=== PATIENT | male | born 1985 | race Caucasian/White ===

== ENCOUNTER 2016-12-21 13:03 | Inpatient (IN) ==
[2016-12-21] MEDS ORDERED: 0.9 % Sodium Chloride 1,000 ML IVC ONE (13:23)
--- NOTE | 2016-12-21 13:23 | Emergency Department Note ---
Disposition Clinical Impression: Acute renal failure, Kidney stones, calcium oxalate Abdominal pain Qualifiers: Abdominal location: generalized Qualified Code(s): R10.84 - Generalized abdominal pain Disposition: Admitted As Inpatient Condition: Serious Referrals: NO,PCP [Primary Care Provider] - Forms: ED Satisfaction Letter General Adult HPI - General Chief complaint: ED Back Pain/Injury Stated complaint: Vomiting, lower back pain, dark urine, for 3 days Time Seen by Provider: 12/21/16 13:21 Source: patient, family Limitations: no limitations - History of Present Illness HPI Narrative: 31 year old with recurrent nausea, vomiting and abdominal pain episodes in [place] of monthly for years, hospitalized for low K, renal failure multiple kidney failures multiple procedures of stones past GI workup normal and question diagnosis of cyclic vomiting refuses to come to hospital, even though he was instructed to not damage kidneys by staying at home still waits few days, due to stubborn not wanting to be sent home. Onset (ago): day(s) Location: abdomen Pain Severity: severe, similar to prior episodes Pain Scale: 8 Quality: stabbing, sharp Consistency: intermittent Improves with: eating Associated symptoms: Reports: diaphoresis, loss of appetite, malaise, nausea/ vomiting, shortness of breath, weakness Treatments Prior to Arrival: none - Related Data Home Medications Medication Instructions Recorded Confirmed No Known Home Drugs 12/21/16 12/21/16 Allergies Allergy/AdvReac Type Severity Reaction Status Date / Time No Known Allergies Allergy Verified 08/19/15 16:35 All systems ED: reviewed and negative except as stated. Constitutional: Reports: weakness Gastrointestinal: Reports: as per HPI Neurological: Reports: weakness Past Medical History - Past Medical History Medical history: Reports: kidney stones, other Surgical history: Reports: other Psychiatric history: Reports: no psych history - Social History Smoking Status: Current every day smoker Smokeless Tobacco Status: No Alcohol use: Reports: none Drug use: Reports: marijuana Physical Exam - General Limitations: no limitations General appearance: alert - Head Head exam: atraumatic - Eye Eye exam: Present: normal appearance - ENT ENT exam: normal exam - Neck Neck exam: Present: normal inspection - Chest Chest inspection: Present: normal inspection - Respiratory Respiratory exam: Present: normal lung sounds bilaterally - Cardiovascular Cardiovascular exam: Present: normal rhythm, tachycardia - Abdominal Exam Abdominal exam: Present: soft, tenderness. Absent: guarding, rebound Abdominal tenderness: Present: diffuse Course Course Narrative: patient seen and examined recurrent problem fluids and pain/antiemetics Vital Signs Temperature 98.9 F 12/21/16 13:06 Pulse Rate 125 12/21/16 13:06 Respiratory Rate 16 12/21/16 13:06 Blood Pressure 130/91 12/21/16 13:06 O2 Sat by Pulse Oximetry 95 12/21/16 13:06 Temperature 98.9 F 12/21/16 13:09 Pulse Rate 125 12/21/16 13:09 Respiratory Rate 16 12/21/16 13:09 Blood Pressure 130/91 12/21/16 13:09 O2 Sat by Pulse Oximetry 95 12/21/16 13:09 Oxygen Delivery Oxygen Delivery Room Air Medical Decision Making - MDM Narrative Medical decision making narrative: ARF kidney stones nausea and vomiting recurrent problems - Medical Records Medical records reviewed: Yes I reviewed the patient's medical records. - Lab Data Lab results reviewed: Yes I reviewed the patient's lab results. Result diagrams: 12/21/16 13:39 12/21/16 13:39 Lab Results 12/21/16 12/21/16 12/21/16 Range/Units 13:28 13:28 13:39 WBC 16.3 H (4.3-11.1) K/mcL RBC 6.87 H (4.19-5.50) M/mcL Hgb 19.7 H (12.9-16.9) g/dL Hct 56.7 H (37.5-50.1) % MCV 82.5 L (83.0-100.0) fL MCH 28.7 (28.0-33.3) pg MCHC 34.7 (31.6-35.5) g/dL RDW 13.1 (11.5-14.5) % Plt Count 341 (140-400) K/mcL MPV 10.7 (9.4-12.4) fL Immature Gran % 0.4 (0-4) % Seg Neutrophils % 86.2 % Lymphocytes % 8.5 % Monocytes % 4.2 % Eosinophils % 0.1 % Basophils % 0.6 % Neutrophils # 14.1 H (1.6-8.9) K/mcL Lymphocytes # 1.4 (0.6-4.6) K/mcL Monocytes # 0.7 (0.0-1.3) K/mcL Eosinophils # 0.0 (0.0-0.6) K/mcL Basophils # 0.1 (0.0-0.2) K/mcL Sodium (136-145) mEq/L Potassium (3.5-4.5) mEq/L Chloride (98-109) mEq/L Carbon Dioxide (19-29) mEq/L BUN (8-26) mg/dL Creatinine (0.72-1.25) mg/dL Est GFR ( Amer) (> 60) Est GFR (Non-Af Amer) (> 60) BUN/Creatinine Ratio (6-26) Glucose (70-99) mg/dL Calculated Osmolality (280-300) Calcium (8.6-10.8) mg/dL Total Bilirubin (0.2-1.2) mg/dL Direct Bilirubin (0.0-0.5) mg/dL Indirect Bilirubin (0.0-1.2) mg/dL AST (5-34) Units/L ALT (0-55) Units/L Alkaline Phosphatase (38-126) Units/L Serum Total Protein (6.0-8.3) g/dL Albumin (3.5-5.0) g/dL Globulin (2.4-3.5) g/dL Albumin/Globulin Ratio (1.1-2.2) Amylase (25-125) Units/L Lipase (8-78) Units/L Urine Color Dark Yellow (Yellow) Urine Clarity Slightly Cloudy A (Clear) Urine pH 5.0 (5.0-8.0) pH Units Ur Specific [place] >= 1.030 H (1.010-1.025) Urine Protein >=300 H (Neg-Trace) mg/dL Urine Glucose (UA) Normal (Normal) mg/dL Urine Ketones 15 H (Negative) mg/dL Urine Blood Large H (Negative) Urine Nitrite Negative (Negative) Urine Bilirubin Large H (Negative) Urine Urobilinogen Normal (Normal) mg/dL Ur Leukocyte Esterase Negative (Negative) Urine Microscopic RBC TNTC H (0-3) per hpf Urine Microscopic WBC 3-5 H (0-3) per hpf Ur Squamous Epith Cells Few (None-Few) per lpf Ur Renal Epithelial Cell Many H (None-Few) per hpf Urine Bacteria Few (None-Few) per hpf Granular Casts Many H (None Seen) per lpf Urine Mucus Few (Few) Ur Culture Indicated? NO (NO) Urine Opiates Screen Negative (Zksidq=796) ng/mL Ur Oxycodone Screen Positive H (Cutoff= 100) ng/mL Ur Barbiturates Screen Negative (Nkfrqy=121) ng/mL Ur Phencyclidine Scrn Negative (Cutoff=25) ng/mL Ur Amphetamines Screen Negative (Crwkbi=2315) ng/mL U Benzodiazepines Scrn Negative (Igtftq=668) ng/mL Urine Cocaine Screen Negative (Cutoff= 300) ng/mL U Marijuana (THC) Screen Positive H (Cutoff = 50) ng/mL 12/21/16 Range/Units 13:39 WBC (4.3-11.1) K/mcL RBC (4.19-5.50) M/mcL Hgb (12.9-16.9) g/dL Hct (37.5-50.1) % MCV (83.0-100.0) fL MCH (28.0-33.3) pg MCHC (31.6-35.5) g/dL RDW (11.5-14.5) % Plt Count (140-400) K/mcL MPV (9.4-12.4) fL Immature Gran % (0-4) % Seg Neutrophils % % Lymphocytes % % Monocytes % % Eosinophils % % Basophils % % Neutrophils # (1.6-8.9) K/mcL Lymphocytes # (0.6-4.6) K/mcL Monocytes # (0.0-1.3) K/mcL Eosinophils # (0.0-0.6) K/mcL Basophils # (0.0-0.2) K/mcL Sodium 146 H (136-145) mEq/L Potassium 4.0 (3.5-4.5) mEq/L Chloride 100 (98-109) mEq/L Carbon Dioxide 27 (19-29) mEq/L BUN 32 H (8-26) mg/dL Creatinine 2.92 H (0.72-1.25) mg/dL Est GFR ( Amer) 30 L (> 60) Est GFR (Non-Af Amer) 25 L (> 60) BUN/Creatinine Ratio 11 (6-26) Glucose 184 H (70-99) mg/dL Calculated Osmolality 314 H (280-300) Calcium 12.4 H (8.6-10.8) mg/dL Total Bilirubin 1.1 (0.2-1.2) mg/dL Direct Bilirubin 0.4 (0.0-0.5) mg/dL Indirect Bilirubin 0.7 (0.0-1.2) mg/dL AST 17 (5-34) Units/L ALT 24 (0-55) Units/L Alkaline Phosphatase 92 (38-126) Units/L Serum Total Protein 9.8 H (6.0-8.3) g/dL Albumin 5.1 H (3.5-5.0) g/dL Globulin 4.7 H (2.4-3.5) g/dL Albumin/Globulin Ratio 1.1 (1.1-2.2) Amylase 61 (25-125) Units/L Lipase 20 (8-78) Units/L Urine Color (Yellow) Urine Clarity (Clear) Urine pH (5.0-8.0) pH Units Ur Specific [place] (1.010-1.025) Urine Protein (Neg-Trace) mg/dL Urine Glucose (UA) (Normal) mg/dL Urine Ketones (Negative) mg/dL Urine Blood (Negative) Urine Nitrite (Negative) Urine Bilirubin (Negative) Urine Urobilinogen (Normal) mg/dL Ur Leukocyte Esterase (Negative) Urine Microscopic RBC (0-3) per hpf Urine Microscopic WBC (0-3) per hpf Ur Squamous Epith Cells (None-Few) per lpf Ur Renal Epithelial Cell (None-Few) per hpf Urine Bacteria (None-Few) per hpf Granular Casts (None Seen) per lpf Urine Mucus (Few) Ur Culture Indicated? (NO) Urine Opiates Screen (Yrwelj=064) ng/mL Ur Oxycodone Screen (Cutoff= 100) ng/mL Ur Barbiturates Screen (Ckwfsc=126) ng/mL Ur Phencyclidine Scrn (Cutoff=25) ng/mL Ur Amphetamines Screen (Naxqwd=7306) ng/mL U Benzodiazepines Scrn (Phkemv=124) ng/mL Urine Cocaine Screen (Cutoff= 300) ng/mL U Marijuana (THC) Screen (Cutoff = 50) ng/mL - Radiology Data Radiology results reviewed: Yes I reviewed the patient's radiology results. Impressions Abdomen/Pelvis CT 12/21/16 13:24 IMPRESSION: Bilateral nephrolithiasis. No evidence of urinary tract obstruction. Nonspecific rectosigmoid colon wall thickening similar to the prior exam. No evidence of inflammation. D/ / Tevin Valiente MD / Tevin Valiente MD Interpreting Provider: Tevin Valiente MD
[2016-12-21 13:31] LABS: Bilirubin,Urine Large (Negative); Blood,Urine Large (Negative); Clarity,Urine Slightly Cloudy (Clear); Glucose,Urine (UA) Normal (Normal); Ketones,Urine 15 mg/dL (Negative); Leukocyte Esterase,Urine Negative (Negative); Nitrite,Urine Negative (Negative); Protein,Urine >=300 mg/dL (Neg-Trace); Specific Gravity,Urine >= 1.030 (1.010-1.025); Urobilinogen,Urine Normal (Normal)
[2016-12-21] MEDS ORDERED: *HR* HYDROmorphone (PF) 1 MG/ML SYRINGE IVP ONE ×2 (13:46→14:54)
[2016-12-21 13:48] LABS: Amphetamine Screen,Urine Negative ng/mL (Cutoff=1000); Barbiturate Screen,Urine Negative ng/mL (Cutoff=200); Benzodiazepines Screen,Urine Negative ng/mL (Cutoff=200); Cannabinoid Screen,Urine Positive ng/mL (Cutoff = 50); Cocaine Screen,Urine Negative ng/mL (Cutoff= 300); Opiate Screen,Urine Negative ng/mL (Cutoff=300); Phencyclidine Screen,Urine Negative ng/mL (Cutoff=25)
[2016-12-21 13:49] LABS: Color,Urine Dark Yellow (Yellow)
[2016-12-21 13:50] LABS: Basophils # 0.1 K/mcL (0.0-0.2); Basophils % 0.6 %; Eosinophils % 0.1 %; Hemoglobin 19.7 g/dL (12.9-16.9); Immature Granulocytes % 0.4 % (0-4); Lymphocytes # 1.4 K/mcL (0.6-4.6); Lymphocytes % 8.5 %; Mean Corpuscular HGB Conc 34.7 g/dL (31.6-35.5); Mean Corpuscular Hemoglobin 28.7 pg (28.0-33.3); Mean Corpuscular Volume 82.5 fL (83.0-100.0); Mean Platelet Volume 10.7 fL (9.4-12.4); Monocytes # 0.7 K/mcL (0.0-1.3); Monocytes % 4.2 %; Platelet Count 341 K/mcL (140-400); Red Blood Count 6.87 M/mcL (4.19-5.50); Red Cell Distribution Width 13.1 % (11.5-14.5); Segmented Neutrophils % 86.2 %
[2016-12-21 13:52] LABS: Granular Casts,Urine Many per lpf (None Seen); Mucus,Urine Few (Few); RBC,Urine TNTC per hpf (0-3); Renal Epithelial Cells,Urine Many per hpf (None-Few); Squamous Epithelial Cell,Urine Few per lpf (None-Few)
[2016-12-21 13:53] LABS: Bacteria,Urine Few per hpf (None-Few)
[2016-12-21] MEDS ORDERED: Ondansetron 4 MG/2 ML VIAL IVP ONE (13:59)
[2016-12-21 14:10] LABS: Albumin 5.1 g/dL (3.5-5.0); Albumin/Globulin Ratio 1.1 (1.1-2.2); Bilirubin,Direct 0.4 mg/dL (0.0-0.5); Bilirubin,Indirect 0.7 mg/dL (0.0-1.2); Bilirubin,Total 1.1 mg/dL (0.2-1.2); Calcium 12.4 mg/dL (8.6-10.8); Globulin 4.7 g/dL (2.4-3.5); Hematocrit 56.7 % (37.5-50.1); Neutrophils # 14.1 K/mcL (1.6-8.9); Total Protein 9.8 g/dL (6.0-8.3)
[2016-12-21] MEDS ORDERED: GI Cocktail 40 ML EACH PO ONE (14:54)
[2016-12-21] MEDS ORDERED: 0.9 % Sodium Chloride 1,000 ML IVC SCH (15:00)
[2016-12-21] MEDS ORDERED: Ondansetron ODT 4 MG TAB.RAPDIS SL PRN (15:47)
[2016-12-21] MEDS ORDERED: Ondansetron 4 MG/2 ML VIAL IVP PRN (15:47)
[2016-12-21] MEDS ORDERED: Naloxone 0.4 MG/ML INJ IVP PRN (15:47)
[2016-12-21] MEDS ORDERED: *HR* HYDROmorphone (PF) 1 MG/ML SYRINGE IVP PRN (15:47)
[2016-12-21] MEDS ORDERED: *HR* OxyCODONE Immed Rel 5 MG TABLET PO PRN (15:47)
[2016-12-21] MEDS: 0.9 % Sodium Chloride 1,000 ML IVC SCH (16:33)
[2016-12-21] MEDS: *HR* Promethazine 25 MG/ML VIAL IVP PRN (16:51)
[2016-12-21] MEDS: *HR* HYDROmorphone (PF) 1 MG/ML SYRINGE IVP PRN ×3 (18:02→22:47)
[2016-12-22] MEDS: *HR* HYDROmorphone (PF) 1 MG/ML SYRINGE IVP PRN ×7 (00:46→17:42)
[2016-12-22] MEDS: *HR* Promethazine 25 MG/ML VIAL IVP PRN ×2 (00:47→06:42)
[2016-12-22] MEDS: 0.9 % Sodium Chloride 1,000 ML IVC SCH ×2 (00:47→09:04)
[2016-12-22 05:41] LABS: Basophils # 0.1 K/mcL (0.0-0.2); Basophils % 0.4 %; Eosinophils % 0.1 %; Hematocrit 54.5 % (37.5-50.1); Immature Granulocytes % 0.5 % (0-4); Lymphocytes # 2.6 K/mcL (0.6-4.6); Lymphocytes % 14.6 %; Mean Corpuscular Hemoglobin 28.4 pg (28.0-33.3); Mean Corpuscular Volume 86.1 fL (83.0-100.0); Mean Platelet Volume 11.3 fL (9.4-12.4); Monocytes # 2.2 K/mcL (0.0-1.3); Monocytes % 12.4 %; Platelet Count 250 K/mcL (140-400); Red Blood Count 6.33 M/mcL (4.19-5.50); Red Cell Distribution Width 12.9 % (11.5-14.5)
[2016-12-22 06:01] LABS: Calcium 10.5 mg/dL (8.6-10.8); Potassium 3.7 mEq/L (3.5-4.5)
[2016-12-22] MEDS ORDERED: Pantoprazole 40 MG VIAL IVP SCH (09:00)
[2016-12-22] MEDS ORDERED: Ondansetron 4 MG/2 ML VIAL IVP PRN (11:50)
[2016-12-22] MEDS ORDERED: Ondansetron ODT 4 MG TAB.RAPDIS SL PRN (11:51)
[2016-12-22] MEDS ORDERED: *HR* Promethazine 25 MG/ML VIAL IVP PRN (11:51)
--- NOTE | 2016-12-22 11:56 | Internal Med History&Physical ---
Date of Encounter: 12/22/16 Time of Encounter: 11:25 Assessment and Plan (1) Acute renal failure Current visit: Yes Status: Acute He has been started on IV fluids and renal indices will be monitored. Qualifiers: Acute renal failure type: unspecified Qualified Code(s): N17.9 - Acute kidney failure, unspecified (2) Hyperuricemia Current visit: Yes Status: Acute Uric acid level was 9.0 on 05/13/2015. We will give IV fluids and recheck in a.m. (3) Leucocytosis Current visit: No Status: Acute Urine culture has been ordered. We will give Rocephin empirically Qualifiers: Leukocytosis type: unspecified Qualified Code(s): D72.829 - Elevated white blood cell count, unspecified (4) Hypercalcemia Current visit: No Status: Resolved Improved today at 10.5 from admission level of 12.4. Continue to monitor. (5) Hypophosphatemia Current visit: Yes Status: Acute Phosphorus level was 1.9 on 05/14/2015. We will recheck in a.m. Internal Medicine - H&P: HPI Chief complaint: Vomiting Admitted From: Home Plans for Post Hospital Care: Home History of present illness: Mr. Kwan is a 31 year old male who came to emergency complaining of vomiting onset December 18. He reports 37 episodes of vomiting with progressive weakness. He was evaluated in emergency room and found to have dehydration with acute renal failure and leukocytosis. He was admitted to [facility] floor for ongoing care needs. He states he has had numerous previous similar episodes and was diagnosed with cyclical vomiting approximately 2010 in [place]. He states he is typically admitted to the hospital and requires 2-3 days of IV fluids and analgesics. He reports having 2 EGDs and 2 colonoscopies. He had several colon polyps removed during the last colonoscopy in 2012. It was recommended he have a three-year follow-up colonoscopy but he has not had this done. He has GERD but denies disorders of his liver or exocrine pancreas. Past Med Surg Social Fam HX - Past Medical History Medical history: kidney stones, other Psychiatric history: no psych history - Past Surgical History Surgical History: other - Social History Smoking Status: Current every day smoker Smokeless Tobacco Status: No Alcohol use: none Drug use: marijuana - Family History Grandmother Living Status: Age at : 72 Cause of : Cancer Hx Family Cancer: Yes Internal Medicine - H&P: Meds No Known Home Drugs 12/21/16 [History] Allergies No Known Allergies Allergy (Verified 08/19/15 16:35) All Systems PM: A 10-system review of systems was performed and is negative for pertinent findings except as documented above in the HPI. Review of systems: General: He states his weight has been stable the last few months Cardiovascular: He denies DE hypertension heart failure angina DVT or pulmonary embolus Respiratory: He is smoked since age 14 a total of 13 years up to one pack per day. He denies chronic lung disease and does not wear home oxygen GI: As per history of present illness : He has had multiple kidney stones in the past and has had numerous episodes of acute renal failure requiring IV fluids for rehydration. He was told at one time he had prostatitis. Neurologic: He denies large distribution strokes or seizures. Endocrine: He denies diabetes thyroid disease or hyperlipidemia. He has been diagnosed with hypercalcemia in the past but PTH level was normal April 2015 Hematology/oncology: He denies blood disorders cancers or anemia Psychiatric: Denies anxiety depression or other mental health issues Musk skeletal: He denies arthritis gout or other bone joint or muscle disorders. - Constitutional Vitals: Temp Pulse Resp BP Pulse Ox 98.1 F 60 16 142/89 97 12/22/16 06:46 12/22/16 06:46 12/22/16 06:46 12/22/16 06:46 12/22/16 06:46 Exam: Gen.: He is a well-developed nourished male who appears in no severe distress at present time HEENT: Head is atraumatic normocephalic. Eyes: EOMI. There is no scleral icterus. Mouth: Mucosa is moist. Neck: Supple and nontender. There is no thyromegaly or adenopathy noted. Heart: Regular without murmurs gallops or ectopics Lungs: No wheezes or crackles are heard. Abdomen: Soft and nontender. Bowel sounds are present. There is no masses or guarding noted Extremity: There is no cyanosis edema or clubbing noted. Dorsalis pedis and posterior tibial pulses are 1-2 bilaterally. Neurologic: Mental status: He is talkative and a good historian. Cranial nerves : Smile is symmetric. Forehead wrinkles bilaterally. Tongue protrudes midline. EOMI. Motor: There is no pronator drift. Cerebellar: Finger to nose is intact bilaterally. Skin: Warm and dry Internal Med - H&P Results - Labs CBC & Chem 7: 12/22/16 04:55 12/22/16 04:55 Labs: Short CBC 12/22/16 Range/Units 04:55 WBC 18.0 H (4.3-11.1) K/mcL Hgb 18.0 H D (12.9-16.9) g/dL Hct 54.5 H (37.5-50.1) % Plt Count 250 (140-400) K/mcL Neutrophils # 13.0 H (1.6-8.9) K/mcL BMP 12/22/16 04:55 Sodium 149 H Potassium 3.7 Chloride 101 Carbon Dioxide 31 H BUN 39 H Creatinine 1.79 H Glucose 105 H Calcium 10.5 D
[2016-12-22] MEDS ORDERED: *HR* Promethazine 25 MG/ML VIAL IVP SCH (12:00)
[2016-12-22] MEDS ORDERED: *HR* OxyCODONE/APAP 5/325 TABLET PO SCH (12:00)
[2016-12-22] MEDS ORDERED: CefTRIAXone 1,000 MG in D5% in Water (Mini-Bag+) 100 ML IVPB SCH (12:00)
[2016-12-22] MEDS: *HR* OxyCODONE/APAP 5/325 TABLET PO SCH (16:45)
[2016-12-23] MEDS: *HR* OxyCODONE/APAP 5/325 TABLET PO SCH ×2 (00:13→08:34)
[2016-12-23 00:28] VITALS: BP 130/85
[2016-12-23 06:31] LABS: Basophils # 0.1 K/mcL (0.0-0.2); Basophils % 0.7 %; Eosinophils # 0.2 K/mcL (0.0-0.6); Eosinophils % 1.7 %; Hematocrit 45.4 % (37.5-50.1); Hemoglobin 14.9 g/dL (12.9-16.9); Immature Granulocytes % 0.2 % (0-4); Lymphocytes # 3.6 K/mcL (0.6-4.6); Lymphocytes % 29.2 %; Mean Corpuscular HGB Conc 32.8 g/dL (31.6-35.5); Mean Corpuscular Hemoglobin 28.7 pg (28.0-33.3); Mean Corpuscular Volume 87.3 fL (83.0-100.0); Mean Platelet Volume 11.3 fL (9.4-12.4); Monocytes % 8.1 %; Neutrophils # 7.3 K/mcL (1.6-8.9); Platelet Count 207 K/mcL (140-400); Red Cell Distribution Width 12.7 % (11.5-14.5); Segmented Neutrophils % 60.1 %
[2016-12-23 06:44] LABS: Alanine Aminotransferase 17 Units/L (0-55); Albumin 3.5 g/dL (3.5-5.0); Albumin/Globulin Ratio 1.3 (1.1-2.2); Alkaline Phosphatase 62 Units/L (38-126); Aspartate Amino Transferase 16 Units/L (5-34); BUN/Creatinine Ratio 19 (6-26); Bilirubin,Total 0.7 mg/dL (0.2-1.2); Blood Urea Nitrogen 21 mg/dL (8-26); Calcium 8.5 mg/dL (8.6-10.8); Carbon Dioxide 28 mEq/L (19-29); Chloride 102 mEq/L (98-109); Globulin 2.8 g/dL (2.4-3.5); Glucose 112 mg/dL (70-99); Osmolality,Calculated 298 (280-300); Phosphorous 2.4 mg/dL (2.3-4.7); Potassium 3.6 mEq/L (3.5-4.5); Sodium 142 mEq/L (136-145); Total Protein 6.3 g/dL (6.0-8.3); Uric Acid 6.8 mg/dL (3.5-7.2); eGFR For African Americans > 60 (> 60); eGFR For Non-African Americans > 60 (> 60)
--- NOTE | 2016-12-23 08:27 | Discharge Summary ---
Date of Encounter: 12/23/16 Time of Encounter: 08:15 - Discharge Diagnosis (1) Acute renal failure Priority: Primary Status: Resolved Qualifiers: Acute renal failure type: unspecified Qualified Code(s): N17.9 - Acute kidney failure, unspecified (2) Hyperuricemia Priority: Secondary Status: Resolved (3) Leucocytosis Priority: Secondary Status: Acute Qualifiers: Leukocytosis type: unspecified Qualified Code(s): D72.829 - Elevated white blood cell count, unspecified (4) Hypercalcemia Priority: Secondary Status: Resolved (5) Hypophosphatemia Priority: Secondary Status: Resolved - Discharge Medications Home Medications: No Known Home Drugs 12/21/16 [History] Allergies/Adverse Reactions: Allergies No Known Allergies Allergy (Verified 08/19/15 16:35) Date of admission: 12/21/16 15:16 Primary care physician: PCP NO - Patient Status Disposition: Home, Self-Care Condition: Serious Overall status at discharge: patient is progressing back to baseline - Discharge Instructions Follow Up With: NO,PCP [Primary Care Provider] - 1 week - Diet and Activity Activity: resume usual activities as tolerated Diet: advance to your usual diet Hospital course: Mr. Kwan is a 31 year old male who came to emergency complaining of vomiting onset December 18. He reports 37 episodes of vomiting with progressive weakness. He was evaluated in emergency room and found to have dehydration with acute renal failure and leukocytosis. He was admitted to [facility] floor for ongoing care needs. Initial orders were written by the emergency room physician. I saw him on December 22 and performed the history and physical. He was given IV fluids and prn anti-emetics. He had no further vomiting after I saw him. He was able to tolerate adequate amount of food and fluids. His azotemia resolved with BUN and creatinine being 21 and 1.11 respectively on December 23. His calcium level improved to 8.5 with IV fluids. Uric acid level was normal at 6.8 and phosphorus level was normal at 2.4. When I saw him on December 23 he felt stable for discharge home. He will follow- up with a PCP within one week. He will call [facility] to schedule an appointment for further evaluation for his kidney stones. - Time Spent with Patient Total time spent providing and/or coordinating discharge services: - Constitutional Vitals: Temp Pulse Resp BP Pulse Ox 98.3 F 64 20 130/85 95 12/23/16 00:27 12/23/16 00:27 12/23/16 00:27 12/23/16 00:27 12/23/16 00:27
== END 2016-12-23 09:05 | disposition home or self-care (01) | DRG 684 ==
LOC: EMEROOPIK 13:03 → INPPIK 13:03
PROVIDERS: ADMIT Internal Medicine; ATTEND Internal Medicine

== ENCOUNTER 2017-03-26 14:16 | Observation (INO) ==
--- NOTE | 2017-03-26 14:30 | Emergency Department Note ---
Disposition Clinical Impression: Abdominal pain Qualifiers: Abdominal location: epigastric Qualified Code(s): R10.13 - Epigastric pain Intractable vomiting with nausea Qualifiers: Vomiting type: cyclical vomiting Qualified Code(s): G43.A1 - Cyclical vomiting , intractable Disposition: Admitted As Inpatient Condition: Fair Nausea/Vomiting/Diarrhea HPI - General Chief complaint: ED Abdominal Pain Stated complaint: abdominal pain, vomiting,duarrhea x 6 day Time Seen by Provider: 03/26/17 14:30 Source: patient, family Mode of arrival: private vehicle Limitations: no limitations Nursing Notes Reviewed: Yes Vital Signs Reviewed: Yes - History of Present Illness HPI Narrative: Patient relates he has had 6 days of increasing nausea and vomiting. He states he started with just vomiting 1-2 times a day in [place] about 13 times in last 24 hours. States he vomits bile whenever he tries to eat or drink. He has had similar trouble intermittently for 6 years and this happens about every 2-3 months. He relates he usually gets bad enough where he needs to be hospitalized for couple days of IV fluids and then he feels much better again. He has been having some diarrhea with this syndrome without blood or mucus. He describes it as "explosive". He also states his urine is less frequent, dark, malodorous. She denies any fevers or chills. He does have some occasional sweats. Denies chest pain or shortness of breath. Denies any change in medication, Advil exposures, antibiotics or travel. He states he does not have any antiemetics. He states that occasionally marijuana will help that he also questions if this may be associated with the marijuana. He does request that he did not have any imaging because he had about [address] scans. He states these are usually negative for does confirm that he has some nephric stones. Patient also relates that he has had multiple upper GI studies, endoscopy and gastric emptying studies without finding a cause for his recurrent problem. Pt Subjective Complaint: nausea, vomiting, diarrhea, abdominal pain Onset (ago): day(s) (6) Description of emesis: food contents, watery, bilious Description of Diarrhea: water Associated Abdominal Pain: Yes If pain, Location of pain: diffuse Severity: moderate Quality: cramping Consistency: intermittent Improves with: nothing Worsens with: eating, bowel movement, vomiting Associated symptoms: Reports: malaise, nausea/vomiting, weakness. Denies: myalgias, chest pain, cough, diaphoresis, fever/chills, headaches, loss of appetite, rash, dysuria, shortness of breath, syncope - Related Data Home Medications Medication Instructions Recorded Confirmed No Known Home Drugs 12/21/16 12/21/16 Allergies Allergy/AdvReac Type Severity Reaction Status Date / Time No Known Allergies Allergy Verified 08/19/15 16:35 All systems ED: reviewed and negative except as stated. Past Medical History - Past Medical History Attestation: Yes The following information was validated with the patient. Source: patient, nursing notes reviewed Medical history: Reports: kidney stones, other (Cyclic vomiting syndrome) Surgical history: Reports: other Psychiatric history: Reports: no psych history - Social History Smoking Status: Current every day smoker Smokeless Tobacco Status: No Alcohol use: Reports: none Drug use: Reports: marijuana Physical Exam - General Limitations: no limitations General appearance: alert, in no apparent distress - Head Head exam: atraumatic, normocephalic, normal inspection - Eye Eye exam: Present: normal appearance, PERRL, EOMI. Absent: scleral icterus, conjunctival injection - ENT ENT exam: normal exam, normal oropharynx, mucous membranes moist - Neck Neck exam: Present: normal inspection, full ROM, trachea midline - Chest Chest inspection: Present: normal inspection, symmetric chest wall rise - Respiratory Respiratory exam: Present: normal lung sounds bilaterally. Absent: respiratory distress, wheezes, prolonged expiratory phase - Cardiovascular Cardiovascular exam: Present: regular rate, normal rhythm, normal heart sounds. Absent: tachycardia - Abdominal Exam Abdominal exam: Present: soft, normal bowel sounds. Absent: distention, guarding, rebound, rigidity Abdominal tenderness: Present: diffuse, mild - Extremities Exam Extremities exam: Present: normal inspection, full ROM, normal capillary refill. Absent: tenderness, pedal edema - Expanded Lower Extremity Exam Neurovascular/Tendon exam: Present: normal capillary refill. Absent: motor deficit, sensory deficit, tendon deficit Gait: observed and normal - Back Exam Back exam: Present: normal inspection, full ROM. Absent: tenderness, vertebral tenderness - Neurological Exam Neurological exam: Present: alert, oriented X3 - Psychiatric Psychiatric exam: Present: normal affect, normal mood - Skin Skin exam: Present: warm, dry, intact, normal color. Absent: rash, diaphoresis , pallor Course Course Narrative: 1545: Lab results have been discussed with the patient and his family. He continues with a severe pressure feeling in the epigastrium and nausea. He has been written for a dose of haloperidol and Benadryl to see if that will ease it off. He indicates that Dilaudid has worked in the past to "take the edge off". This continued pain again discussed imaging and he would like to go without. He states this is a same as he has had recurrently for 6 years and he just needs IV fluids and some pain medicine for a couple days. 1550: Patient's presentation and workup has been discussed with Dr. Nunez. He is agreeable with continuing aggressive hydration, anti-emetics and Dilaudid at 0.5 mg periodically for pain. Vital Signs Temperature 98 F 03/26/17 14:20 Pulse Rate 73 03/26/17 14:20 Respiratory Rate 18 03/26/17 14:20 Blood Pressure 119/80 03/26/17 14:20 O2 Sat by Pulse Oximetry 95 03/26/17 14:20 Temperature 98 F 03/26/17 14:25 Pulse Rate 77 03/26/17 15:51 Respiratory Rate 14 03/26/17 16:22 Blood Pressure 150/85 03/26/17 16:22 O2 Sat by Pulse Oximetry 98 03/26/17 15:51 Oxygen Delivery Oxygen Delivery Room Air Nausea/Vomiting/Diarrhea - Differential Diagnosis Likely: gastroenteritis, dehydration - Medical Records Medical records reviewed: Yes I reviewed the patient's medical records. - Lab Data Lab results reviewed: Yes I reviewed the patient's lab results. Result diagrams: 03/26/17 14:44 03/26/17 14:44 Lab Results 03/26/17 03/26/17 Range/Units 14:44 14:44 WBC 14.0 H (4.3-11.1) K/mcL RBC 6.15 H (4.19-5.50) M/mcL Hgb 17.7 H (12.9-16.9) g/dL Hct 51.3 H (37.5-50.1) % MCV 83.4 (83.0-100.0) fL MCH 28.8 (28.0-33.3) pg MCHC 34.5 (31.6-35.5) g/dL RDW 13.0 (11.5-14.5) % Plt Count 279 (140-400) K/mcL MPV 10.8 (9.4-12.4) fL Immature Gran % 0.4 (0-4) % Seg Neutrophils % 73.4 % Lymphocytes % 18.2 % Monocytes % 6.9 % Eosinophils % 0.4 % Basophils % 0.7 % Neutrophils # 10.3 H (1.6-8.9) K/mcL Lymphocytes # 2.6 (0.6-4.6) K/mcL Monocytes # 1.0 (0.0-1.3) K/mcL Eosinophils # 0.1 (0.0-0.6) K/mcL Basophils # 0.1 (0.0-0.2) K/mcL Sodium 143 (136-145) mEq/L Potassium 4.1 (3.5-4.5) mEq/L Chloride 106 (98-109) mEq/L Carbon Dioxide 22 (19-29) mEq/L BUN 19 (8-26) mg/dL Creatinine 1.31 H (0.72-1.25) mg/dL Est GFR ( Amer) > 60 (> 60) Est GFR (Non-Af Amer) > 60 (> 60) BUN/Creatinine Ratio 15 (6-26) Glucose 129 H (70-99) mg/dL Calculated Osmolality 300 (280-300) Calcium 11.6 H (8.6-10.8) mg/dL Total Bilirubin 0.9 (0.2-1.2) mg/dL Direct Bilirubin 0.3 (0.0-0.5) mg/dL Indirect Bilirubin 0.6 (0.0-1.2) mg/dL AST 16 (5-34) Units/L ALT 21 (0-55) Units/L Alkaline Phosphatase 72 (38-126) Units/L Serum Total Protein 8.3 (6.0-8.3) g/dL Albumin 4.5 (3.5-5.0) g/dL Globulin 3.8 H (2.4-3.5) g/dL Albumin/Globulin Ratio 1.2 (1.1-2.2)
[2017-03-26] MEDS ORDERED: Ondansetron 4 MG/2 ML VIAL IVP ONE (14:36)
[2017-03-26] MEDS: 0.9 % Sodium Chloride 1,000 ML IVC SCH ×3 (14:48→17:10)
[2017-03-26 14:50] LABS: Basophils # 0.1 K/mcL (0.0-0.2); Basophils % 0.7 %; Eosinophils # 0.1 K/mcL (0.0-0.6); Eosinophils % 0.4 %; Hematocrit 51.3 % (37.5-50.1); Hemoglobin 17.7 g/dL (12.9-16.9); Immature Granulocytes % 0.4 % (0-4); Lymphocytes # 2.6 K/mcL (0.6-4.6); Lymphocytes % 18.2 %; Mean Corpuscular HGB Conc 34.5 g/dL (31.6-35.5); Mean Corpuscular Hemoglobin 28.8 pg (28.0-33.3); Mean Corpuscular Volume 83.4 fL (83.0-100.0); Mean Platelet Volume 10.8 fL (9.4-12.4); Monocytes % 6.9 %; Neutrophils # 10.3 K/mcL (1.6-8.9); Platelet Count 279 K/mcL (140-400); Red Blood Count 6.15 M/mcL (4.19-5.50); Segmented Neutrophils % 73.4 %
[2017-03-26 15:08] LABS: Alanine Aminotransferase 21 Units/L (0-55); Albumin 4.5 g/dL (3.5-5.0); Albumin/Globulin Ratio 1.2 (1.1-2.2); Alkaline Phosphatase 72 Units/L (38-126); Aspartate Amino Transferase 16 Units/L (5-34); BUN/Creatinine Ratio 15 (6-26); Bilirubin,Direct 0.3 mg/dL (0.0-0.5); Bilirubin,Indirect 0.6 mg/dL (0.0-1.2); Bilirubin,Total 0.9 mg/dL (0.2-1.2); Blood Urea Nitrogen 19 mg/dL (8-26); Calcium 11.6 mg/dL (8.6-10.8); Carbon Dioxide 22 mEq/L (19-29); Chloride 106 mEq/L (98-109); Globulin 3.8 g/dL (2.4-3.5); Glucose 129 mg/dL (70-99); Osmolality,Calculated 300 (280-300); Potassium 4.1 mEq/L (3.5-4.5); Sodium 143 mEq/L (136-145); Total Protein 8.3 g/dL (6.0-8.3); eGFR For African Americans > 60 (> 60); eGFR For Non-African Americans > 60 (> 60)
[2017-03-26] MEDS ORDERED: Haloperidol Lactate 5 MG/ML VIAL IVP ONE (15:24)
[2017-03-26] MEDS ORDERED: *HR* HYDROmorphone (PF) 1 MG/ML SYRINGE IVP ONE (15:56)
[2017-03-26] MEDS ORDERED: 0.9 % Sodium Chloride 1,000 ML IVC SCH (16:24)
[2017-03-26] MEDS ORDERED: *HR* Promethazine 25 MG/ML VIAL IVP PRN (16:24)
[2017-03-26] MEDS ORDERED: *HR* HYDROmorphone (PF) 1 MG/ML SYRINGE IVP PRN (16:24)
[2017-03-26] MEDS ORDERED: Naloxone 0.4 MG/ML INJ IVP PRN (16:24)
[2017-03-26] MEDS ORDERED: Ondansetron 4 MG/2 ML VIAL IVP PRN (16:24)
[2017-03-26] MEDS: Pantoprazole 40 MG VIAL IVP SCH (17:11)
[2017-03-26] MEDS: *HR* Promethazine 25 MG/ML VIAL IVP PRN ×2 (19:45→23:47)
[2017-03-26] MEDS ORDERED: Ondansetron 4 MG/2 ML VIAL IVP SCH (20:00)
[2017-03-26] MEDS ORDERED: *HR* Promethazine 25 MG/ML VIAL IVP SCH (20:00)
[2017-03-26] MEDS: *HR* HYDROmorphone (PF) 1 MG/ML SYRINGE IVP PRN (20:11)
[2017-03-27] MEDS: *HR* HYDROmorphone (PF) 1 MG/ML SYRINGE IVP PRN ×6 (00:16→21:56)
[2017-03-27] MEDS: 0.9 % Sodium Chloride 1,000 ML IVC SCH ×3 (04:23→21:55)
[2017-03-27] MEDS: *HR* Promethazine 25 MG/ML VIAL IVP PRN ×2 (04:56→08:59)
[2017-03-27 06:07] LABS: BUN/Creatinine Ratio 17 (6-26); Blood Urea Nitrogen 17 mg/dL (8-26); Calcium 9.5 mg/dL (8.6-10.8); Carbon Dioxide 21 mEq/L (19-29); Chloride 110 mEq/L (98-109); Glucose 141 mg/dL (70-99); Osmolality,Calculated 304 (280-300); Sodium 145 mEq/L (136-145); eGFR For African Americans > 60 (> 60); eGFR For Non-African Americans > 60 (> 60)
[2017-03-27] MEDS: Pantoprazole 40 MG VIAL IVP SCH (08:59)
--- NOTE | 2017-03-27 11:17 | Internal Med History&Physical ---
Date of Encounter: 03/27/17 Time of Encounter: 10:55 Assessment and Plan (1) Intractable vomiting with nausea Current visit: Yes Status: Acute He has been given IV fluids with anti-emetics. Further workup will be done as needed. Qualifiers: Vomiting type: cyclical vomiting Qualified Code(s): G43.A1 - Cyclical vomiting, intractable (2) Acute renal failure Current visit: No Status: Resolved Creatinine has decreased overnight to 1.00 with administration of IV fluids. Will continue to monitor labs. Qualifiers: Acute renal failure type: unspecified Qualified Code(s): N17.9 - Acute kidney failure, unspecified Internal Medicine - H&P: HPI Chief complaint: Abdominal pain and vomiting Admitted From: Home Plans for Post Hospital Care: Home History of present illness: Mr. Kwan is a 31 year old male who came to emergency room stating he had onset of abdominal discomfort and vomiting 6 days previously. He reported vomiting worsened over the last 2 days with 13 episodes occurring the day prior to admission. He denies hematemesis. He was evaluated in emergency room and admitted to [facility] floor for ongoing care needs. He was hospitalized at [facility] December 2016 with similar complaints. He states he has had numerous previous similar episodes and was diagnosed with cyclical vomiting approximately 2010 in [place]. He states he is typically admitted to the hospital and requires 2-3 days of IV fluids and analgesics. He reports having 2 EGDs and 2 colonoscopies. He reports numerous abdominal CT scans. He was seen at [facility] approximately 4 years ago but was not satisfied with the physician there and did not return after the third visit. He has not seen other [place] gastroenterologists. He saw Dr. Lee in the past. He had several colon polyps removed during the last colonoscopy in 2012. It was recommended he have a three-year follow-up colonoscopy but he has not had this done. He has GERD but denies disorders of his liver or exocrine pancreas. Past Med Surg Social Fam HX - Past Medical History Medical history: kidney stones, other Psychiatric history: no psych history - Past Surgical History Surgical History: other - Social History Smoking Status: Current every day smoker Packs per day: 1 Smokeless Tobacco Status: No Alcohol use: none Drug use: marijuana - Family History Grandmother Living Status: Hx Family Cancer: Yes Internal Medicine - H&P: Meds No Known Home Drugs 12/21/16 [History] Allergies No Known Allergies Allergy (Verified 08/19/15 16:35) All Systems PM: A 10-system review of systems was performed and is negative for pertinent findings except as documented above in the HPI. Review of systems: Review of systems from his December 2016 [facility] hospitalization were reviewed and revised as below. General: His weight has been stable at approximately 114 kg since the December 2016 hospitalization. Cardiovascular: He denies OH hypertension heart failure angina DVT or pulmonary embolus Respiratory: He is smoked since age 14 a total of 13 years up to one pack per day. He denies chronic lung disease and does not wear home oxygen GI: As per history of present illness : He has had multiple kidney stones in the past and has had numerous episodes of acute renal failure requiring IV fluids for rehydration. He was told at one time he had prostatitis. He did not see a urologist as recommended when discharged December 2016. Neurologic: He denies large distribution strokes or seizures. Endocrine: He denies diabetes thyroid disease or hyperlipidemia. He has been diagnosed with hypercalcemia in the past but PTH level was normal April 2015 Hematology/oncology: He denies blood disorders cancers or anemia Psychiatric: Denies anxiety depression or other mental health issues [place] skeletal: He denies arthritis gout or other bone joint or muscle disorders. - Constitutional Vitals: Temp Pulse Resp BP Pulse Ox 97.9 F 65 16 149/83 98 03/27/17 06:53 03/27/17 06:53 03/27/17 06:53 03/27/17 06:53 03/27/17 06:53 Exam: Gen.: He is a well-developed well-nourished male lying in bed who appears in no acute distress HEENT: Head is atraumatic and normocephalic. Eyes: EOMI. There is no scleral icterus. Mouth: Mucosa is moist. Neck: Supple and nontender. There is no thyromegaly or adenopathy noted. Heart: Regular without murmurs gallops or ectopics. Lungs: No wheezes or crackles are heard. Abdomen: Soft. Bowel sounds are present but diminished. There is mild tenderness to deep palpation. No guarding is noted. Extremities: There is no cyanosis edema or clubbing noted. Dorsalis pedis and posterior tibial pulses are 1-2 over 2 bilaterally. Neurologic: Mental status: He is talkative and a good historian. Cranial nerves : Smile is symmetric. Forehead wrinkles bilaterally. Tongue protrudes midline. EOMI. Motor: There is no pronator drift. Cerebellar: Finger to nose is intact bilaterally. Skin: Warm and dry Internal Med - H&P Results - Labs CBC & Chem 7: 03/26/17 14:44 03/27/17 05:40 Labs: BMP 03/27/17 05:40 Sodium 145 Potassium 4.0 Chloride 110 H Carbon Dioxide 21 BUN 17 Creatinine 1.00 Glucose 141 H Calcium 9.5 D
[2017-03-27] MEDS: Ondansetron 4 MG/2 ML VIAL IVP PRN ×3 (13:08→21:56)
[2017-03-28] MEDS: Ondansetron 4 MG/2 ML VIAL IVP PRN ×2 (02:18→06:28)
[2017-03-28] MEDS: *HR* HYDROmorphone (PF) 1 MG/ML SYRINGE IVP PRN ×2 (02:19→06:29)
[2017-03-28 05:17] LABS: Basophils # 0.1 K/mcL (0.0-0.2); Basophils % 0.7 %; Eosinophils # 0.3 K/mcL (0.0-0.6); Eosinophils % 2.3 %; Hematocrit 43.7 % (37.5-50.1); Hemoglobin 14.2 g/dL (12.9-16.9); Immature Granulocytes % 0.2 % (0-4); Lymphocytes # 3.9 K/mcL (0.6-4.6); Lymphocytes % 29.9 %; Mean Corpuscular HGB Conc 32.5 g/dL (31.6-35.5); Mean Corpuscular Hemoglobin 28.3 pg (28.0-33.3); Mean Corpuscular Volume 87.1 fL (83.0-100.0); Mean Platelet Volume 10.4 fL (9.4-12.4); Monocytes # 1.1 K/mcL (0.0-1.3); Monocytes % 8.1 %; Neutrophils # 7.7 K/mcL (1.6-8.9); Platelet Count 200 K/mcL (140-400); Red Blood Count 5.02 M/mcL (4.19-5.50); Red Cell Distribution Width 13.1 % (11.5-14.5); Segmented Neutrophils % 58.8 %
[2017-03-28 05:34] LABS: BUN/Creatinine Ratio 15 (6-26); Blood Urea Nitrogen 12 mg/dL (8-26); Calcium 8.4 mg/dL (8.6-10.8); Carbon Dioxide 20 mEq/L (19-29); Chloride 110 mEq/L (98-109); Glucose 99 mg/dL (70-99); Lipase 46 Units/L (8-78); Magnesium 1.8 mg/dL (1.6-2.6); Osmolality,Calculated 290 (280-300); Potassium 3.8 mEq/L (3.5-4.5); Sodium 140 mEq/L (136-145); eGFR For African Americans > 60 (> 60); eGFR For Non-African Americans > 60 (> 60)
[2017-03-28 06:21] VITALS: BP 123/66
[2017-03-28] MEDS: 0.9 % Sodium Chloride 1,000 ML IVC SCH (08:23)
[2017-03-28] MEDS: Pantoprazole 40 MG VIAL IVP SCH (08:23)
--- NOTE | 2017-03-28 09:47 | Discharge Summary ---
Date of Encounter: 03/28/17 Time of Encounter: 09:35 - Discharge Diagnosis (1) Intractable vomiting with nausea Priority: Primary Status: Resolved Qualifiers: Vomiting type: cyclical vomiting Qualified Code(s): G43.A1 - Cyclical vomiting, intractable (2) Acute renal failure Priority: Secondary Status: Resolved Qualifiers: Acute renal failure type: unspecified Qualified Code(s): N17.9 - Acute kidney failure, unspecified - Discharge Medications Home Medications: No Known Home Drugs 12/21/16 [History] Allergies/Adverse Reactions: Allergies No Known Allergies Allergy (Verified 08/19/15 16:35) Date of admission: 03/26/17 16:06 Primary care physician: PCP NO Consults: 03/26/17 16:47 Consult to Nutrition [CONS] Routine Comment: Consulting Provider: NUTRITION Reason for Dietary Consult: MST Score - Patient Status Disposition: Home, Self-Care Condition: Fair Functional capacity at discharge: independent ambulation Overall status at discharge: patient is progressing back to baseline - Discharge Instructions Follow Up With: NO,PCP [Primary Care Provider] - 1 week - Diet and Activity Activity: resume usual activities as tolerated Diet: advance to your usual diet Hospital course: Mr. Kwan is a 31 year old male who came to emergency room stating he had onset of abdominal discomfort and vomiting 6 days previously. He reported vomiting worsened over the last 2 days with 13 episodes occurring the day prior to admission. He denies hematemesis. He was evaluated in emergency room and admitted to [facility] floor for ongoing care needs. Initial orders were written by the emergency room physician. I saw him on March 27 and performed a history and physical. He was given IV fluids and anti- emetics. His azotemia resolved with BUN and creatinine being 12 and 0.2 respectively on the day of discharge with estimated GFR greater than 60. He was able to tolerate adequate amount of food and fluids. He had no vomiting the last 24 hours of hospitalization. When I saw him on March 28 he was stable for discharge home. He will follow with a local PCP within one week. - Time Spent with Patient Total time spent providing and/or coordinating discharge services: - Constitutional Vitals: Temp Pulse Resp BP Pulse Ox 97.5 F L 55 16 123/66 98 03/28/17 06:20 03/28/17 06:20 03/28/17 06:20 03/28/17 06:20 03/28/17 06:20
== END 2017-03-28 10:15 | disposition home or self-care (01) ==
LOC: EMEROOPIK 14:16 → INPPIK 14:16
PROVIDERS: ADMIT Internal Medicine; ATTEND Internal Medicine

== ENCOUNTER 2017-12-29 21:35 | Observation (INO) ==
--- NOTE | 2017-12-29 21:40 | Emergency Department Note ---
Disposition Clinical Impression: Kidney stones, calcium oxalate Disposition: Admitted As Inpatient Condition: Fair Referrals: NONE,PCP [Primary Care Provider] - Forms: ED Satisfaction Letter, Work/School Release Time of Disposition: 22:33 (jewels melosophia [facility]) Abdominal Pain HPI - General Chief Complaint: ED Abdominal Pain Stated Complaint: right lower abdominal and flank pain Time Seen by Provider: 12/29/17 21:40 Source: patient Mode of arrival: ambulatory Limitations: no limitations Nursing Notes Reviewed: Yes Vital Signs Reviewed: Yes - History of Present Illness HPI Narrative: 32-year-old male seen last evening diagnosed with a kidney stone on the right- hand side at the proximal ureteral junction he presents now to the emergency with increasing pain and and keep his pain medications down antiemetics patient' s had multiple kidney stones in the past patient denies hematuria states that he cannot urgency frequency dysuria flank pain abdominal pain denies any drinking this was persistent pain to 10 out of 10 Pt Subjective Complaint: abdominal pain, flank pain Onset (ago): day(s) Consistency: constant, Worsening Location: R flank Pain Severity: severe Pain Scale: 10 Quality: cramping, stabbing Radiation: RLQ Improves with: nothing Worsens with: nothing Context: history of similar episodes (but not this intense) Associated symptoms: Reports: nausea. Denies: vomiting, diarrhea, fever, chills , constipation, dysuria, hematemesis, hematochezia, melena, anorexia, syncope Treatments prior to arrival: prescription analgesics, other (er ) - Related Data Previous Rx's Medication Instructions Recorded Ondansetron ODT [Zofran ODT] 8 mg SL Q12HR #10 tab.rapdis 12/28/17 OxyCODONE/APAP 5/325 [Percocet 1 each PO Q6HR PRN 5 Days #20 12/28/17 5/325 MG] tablet Allergies Allergy/AdvReac Type Severity Reaction Status Date / Time tamsulosin [From Flomax] AdvReac See Verified 12/29/17 21:36 Comments All systems ED: reviewed and negative except as stated. Review of Systems: As Per HPI Constitutional: Reports: weakness. Denies: fever, chills Eyes: Denies: eye pain, eye discharge, vision change ENT ED: Denies: ear pain, throat pain, dental pain Cardiovascular: Denies: chest pain, palpitations, dyspnea on exertion Respiratory: Denies: cough, dyspnea, wheezes Gastrointestinal: Reports: abdominal pain, nausea. Denies: vomiting Genitourinary: Reports: urgency, dysuria, frequency. Denies: hematuria Musculoskeletal: Reports: back pain. Denies: neck pain Integumentary: Denies: rash, abrasion, lesions Neurological: Denies: headache, weakness, numbness Psychiatric: Denies: anxiety, depression Endocrine: Denies: fatigue, heat or cold intolerance Hematological/Lymphatic: Denies: easy bleeding, easy bruising Abdominal Pain PMH - Past Medical History Medical history: Reports: kidney stones, other Male Surgical History: Reports: Adenoidectomy, Tonsillectomy, other Psychiatric history: Reports: no psych history - Social History Smoking status: Current every day smoker Alcohol use: Reports: none Drug use: Reports: marijuana Physical Exam - General Limitations: no limitations General appearance: alert, anxious, in distress - Head Head exam: atraumatic, normocephalic, normal inspection - Eye Eye exam: Present: normal appearance, PERRL, EOMI - ENT ENT exam: normal exam, normal oropharynx, mucous membranes moist, TM's normal bilaterally, normal external ear exam - Neck Neck exam: Present: normal inspection, full ROM, trachea midline - Chest Chest inspection: Present: normal inspection, symmetric chest wall rise - Respiratory Respiratory exam: Present: normal lung sounds bilaterally - Cardiovascular Cardiovascular exam: Present: regular rate, normal rhythm, normal heart sounds - Abdominal Exam Abdominal exam: Present: soft, Non-Tender, diminished bowel sounds. Absent: mass, pulsatile mass - Extremities Exam Extremities exam: Present: normal inspection, full ROM, normal capillary refill. Absent: tenderness, pedal edema, joint swelling, calf tenderness - Expanded Lower Extremity Exam Neurovascular/Tendon exam: Present: normal capillary refill, normal fine/light touch Gait: observed and normal - Back Exam Back exam: Present: normal inspection, full ROM, CVA tenderness (R). Absent: CVA tenderness (L), muscle spasm - Neurological Exam Neurological exam: Present: alert, oriented X3, CN II-XII intact, normal gait - Psychiatric Psychiatric exam: Present: normal affect, normal mood - Skin Skin exam: Present: warm, dry, intact, normal color Course Course Narrative: Patient seen and examined IV established given fluids given Toradol for pain given additional Dilaudid for pain patient is going to be admitted to our facility for hydration him be rechecked at 7:00 in the morning still having uncontrolled pain requiring frequent pain medications will transfer that time to the services of Dr. Dejan Helton who I spoke tonight is Dr. Nunez and he is agreeable with this care treatment management and plan patient transferred to [facility] surge stable Vital Signs Temperature 98.1 F 12/29/17 21:37 Pulse Rate 101 12/29/17 21:37 Respiratory Rate 18 12/29/17 21:37 Blood Pressure 124/72 12/29/17 21:37 O2 Sat by Pulse Oximetry 97 12/29/17 21:37 Temperature 98.1 F 12/29/17 21:37 Pulse Rate 101 12/29/17 21:37 Respiratory Rate 18 12/29/17 21:37 Blood Pressure 124/72 12/29/17 21:37 O2 Sat by Pulse Oximetry 97 12/29/17 21:37 Oxygen Delivery Oxygen Delivery Room Air Abdominal Pain - Differential Diagnosis Differential Diagnosis: Likely: abdominal pain non-specific, calculus of kidney - Medical Records Medical records reviewed: Yes I reviewed the patient's medical records. - Lab Data Lab results reviewed: Yes I reviewed the patient's lab results. Result diagrams: 12/29/17 22:01 12/29/17 22:01 Lab Results 12/29/17 12/29/17 Range/Units 22:01 22:01 WBC 14.7 H (4.3-11.1) K/mcL RBC 6.14 H (4.19-5.50) M/mcL Hgb 17.4 H D (12.9-16.9) g/dL Hct 52.2 H (37.5-50.1) % MCV 85.0 (83.0-100.0) fL MCH 28.3 (28.0-33.3) pg MCHC 33.3 (31.6-35.5) g/dL RDW 12.5 (11.5-14.5) % Plt Count 254 (140-400) K/mcL MPV 10.8 (9.4-12.4) fL Immature Gran % 0.3 (0-4) % Seg Neutrophils % 76.3 % Lymphocytes % 14.3 % Monocytes % 7.9 % Eosinophils % 0.5 % Basophils % 0.7 % Neutrophils # 11.2 H (1.6-8.9) K/mcL Lymphocytes # 2.1 (0.6-4.6) K/mcL Monocytes # 1.2 (0.0-1.3) K/mcL Eosinophils # 0.1 (0.0-0.6) K/mcL Basophils # 0.1 (0.0-0.2) K/mcL Sodium 143 (136-145) mEq/L Potassium 4.4 (3.5-5.1) mEq/L Chloride 108 H (98-107) mEq/L Carbon Dioxide 22 L (23-29) mEq/L BUN 21 H (6-20) mg/dL Creatinine 1.63 H (0.70-1.30) mg/dL Est GFR ( Amer) 59 L (> 60) Est GFR (Non-Af Amer) 49 L (> 60) BUN/Creatinine Ratio 13 (6-26) Glucose 147 H (70-105) mg/dL Calculated Osmolality 302 H (280-300) Calcium 10.4 H (8.6-10.3) mg/dL - Radiology Data Radiology results reviewed: Yes I reviewed the patient's radiology results. ITS Impressions KUB X-Ray 12/29/17 21:51 IMPRESSION: The right ureteral calculus is detected on the examination from yesterday is likely too small to be detected with radiography. Re- demonstration of right nephrolithiasis. D/ / Brendan Kat MD / Brendan Kat MD Interpreting Provider: Brendan Kat MD Critical Care Time Critical Care Time: No
[2017-12-29] MEDS ORDERED: *HR* Promethazine 25 MG/ML VIAL IVP ONE (21:51)
[2017-12-29] MEDS ORDERED: 0.9 % Sodium Chloride 1,000 ML IVC ONE (21:51)
[2017-12-29] MEDS ORDERED: Ketorolac 30 MG/ML VIAL IVP ONE (21:51)
[2017-12-29 22:09] LABS: Basophils # 0.1 K/mcL (0.0-0.2); Basophils % 0.7 %; Eosinophils # 0.1 K/mcL (0.0-0.6); Eosinophils % 0.5 %; Hematocrit 52.2 % (37.5-50.1); Hemoglobin 17.4 g/dL (12.9-16.9); Immature Granulocytes % 0.3 % (0-4); Lymphocytes # 2.1 K/mcL (0.6-4.6); Lymphocytes % 14.3 %; Mean Corpuscular HGB Conc 33.3 g/dL (31.6-35.5); Mean Corpuscular Hemoglobin 28.3 pg (28.0-33.3); Mean Platelet Volume 10.8 fL (9.4-12.4); Monocytes # 1.2 K/mcL (0.0-1.3); Monocytes % 7.9 %; Neutrophils # 11.2 K/mcL (1.6-8.9); Platelet Count 254 K/mcL (140-400); Red Blood Count 6.14 M/mcL (4.19-5.50); Red Cell Distribution Width 12.5 % (11.5-14.5); Segmented Neutrophils % 76.3 %
[2017-12-29 22:29] LABS: Calcium 10.4 mg/dL (8.6-10.3); Potassium 4.4 mEq/L (3.5-5.1)
[2017-12-29] MEDS ORDERED: *HR* HYDROmorphone (PF) 1 MG/ML SYRINGE IVP ONE (22:33)
[2017-12-29] MEDS ORDERED: GI Cocktail 40 ML EACH PO ONE (22:33)
[2017-12-29] MEDS ORDERED: cefTRIAXone 1,000 MG in Water for inj. (sterile) 20 ML 10 ML IVPB ONE (22:58)
[2017-12-29 23:08] LABS: Bilirubin,Urine Small (Negative); Blood,Urine Large (Negative); Clarity,Urine Cloudy (Clear); Glucose,Urine (UA) Normal (Normal); Ketones,Urine Trace mg/dL (Negative); Leukocyte Esterase,Urine Negative (Negative); Nitrite,Urine Negative (Negative); PH,Urine 5.5 pH Units (5.0-8.0); Protein,Urine 100 mg/dL (Neg-Trace); Specific Gravity,Urine 1.025 (1.010-1.025); Urobilinogen,Urine Normal (Normal)
[2017-12-29 23:16] LABS: Color,Urine Dark Yellow (Yellow)
[2017-12-29 23:18] LABS: Hyaline Casts,Urine Few per lpf (None-Few); Mucus,Urine Many (Few); Squamous Epithelial Cell,Urine Few per lpf (None-Few)
[2017-12-29 23:19] LABS: Bacteria,Urine Moderate per hpf (None-Few); RBC,Urine TNTC per hpf (0-3)
[2017-12-30] MEDS ORDERED: *HR* Promethazine 25 MG/ML VIAL IVP PRN ×2 (00:19→04:56)
[2017-12-30] MEDS ORDERED: 0.9 % Sodium Chloride 1,000 ML IVC SCH (00:19)
[2017-12-30] MEDS ORDERED: Naloxone 0.4 MG/ML INJ IVP PRN (00:19)
[2017-12-30] MEDS ORDERED: *HR* OxyCODONE Oral Soln 5 MG/5 ML UD.LIQ PO PRN ×2 (00:19→03:47)
[2017-12-30] MEDS ORDERED: Ketorolac 30 MG/ML VIAL IVP PRN (00:19)
[2017-12-30] MEDS ORDERED: GI Cocktail 40 ML EACH PO ONE (01:27)
[2017-12-30] MEDS ORDERED: *HR* HYDROmorphone 2 MG/ML SYRINGE IVP PRN (02:39)
[2017-12-30] MEDS ORDERED: *HR* Nalbuphine 10 MG/ML AMPUL SQ PRN (04:41)
[2017-12-30] MEDS ORDERED: *HR* Nalbuphine 10 MG/ML AMPUL IV PRN (05:00)
[2017-12-30 07:13] VITALS: BP 103/67
[2017-12-30] MEDS ORDERED: cefTRIAXone 1,000 MG in Water for inj. (sterile) 20 ML 10 ML IVPB SCH (09:00)
--- NOTE | 2017-12-30 09:41 | Internal Med History&Physical ---
Date of Encounter: 12/30/17 Time of Encounter: 09:39 Assessment and Plan (1) Ureteral stone with hydronephrosis Current visit: No Status: Acute Internal Medicine - H&P: HPI Chief complaint: Abdominal pain Admitted From: Emergency Dept Plans for Post Hospital Care: Home History of present illness: Mr. Kwan is a 32 year old male who came to emergency room complaining of abdominal pain. He had been seen several hours earlier in emergency room with right lower quadrant pain. CT abdomen and pelvis showed mild right-sided hydronephrosis secondary to stone in the proximal ureter. He was admitted to [facility] floor for ongoing care needs. Past Med Surg Social Fam HX - Past Medical History Medical history: kidney stones, other Psychiatric history: no psych history - Past Surgical History Surgical History: other - Social History Smoking Status: Current every day smoker Smokeless Tobacco Status: No Alcohol use: none Drug use: marijuana - Family History Grandmother Living Status: Hx Family Cancer: Yes Internal Medicine - H&P: Meds Ondansetron ODT [Zofran ODT] 8 mg SL Q12HR #10 tab.rapdis 12/28/17 [Rx] OxyCODONE/APAP 5/325 [Percocet 5/325 MG] 1 each PO Q6HR PRN 5 Days #20 tablet [Rx] 3 Allergy/AdvReac Type Severity Reaction Status Date / Time tamsulosin [From Flomax] AdvReac See Verified 12/29/17 21:36 Comments All Systems PM: A 10-system review of systems was performed and is negative for pertinent findings except as documented above in the HPI. - Constitutional Vitals: Temp Pulse Resp BP Pulse Ox 98.0 F 62 18 103/67 98 12/30/17 07:10 12/30/17 07:10 12/30/17 07:10 12/30/17 07:10 12/30/17 07:10 Internal Med - H&P Results - Labs CBC & Chem 7: 12/29/17 22:01 12/29/17 22:01 Labs: Urine 12/29/17 Range/Units 23:00 Urine Color Dark Yellow (Yellow) Urine Clarity Cloudy A (Clear) Urine pH 5.5 (5.0-8.0) pH Units Ur Specific Chloe 1.025 (1.010-1.025) Urine Protein 100 H (Neg-Trace) mg/dL Urine Glucose (UA) Normal (Normal) mg/dL
--- NOTE | 2017-12-30 09:44 | Discharge Summary ---
Date of Encounter: 12/30/17 Time of Encounter: 09:39 - Discharge Diagnosis (1) Ureteral stone with hydronephrosis Priority: Primary Status: Acute Hospital course: Mr. Kwan is a 32 year old male who came to emergency room complaining of abdominal pain. He had been seen several hours earlier in emergency room with right lower quadrant pain. CT abdomen and pelvis showed mild right-sided hydronephrosis secondary to stone in the proximal ureter. He was admitted to [facility] floor for ongoing care needs. Initial orders were written by the emergency room physician. Contact was made with urology while patient was in ER and urologist recommended IV fluids and analgesics with observation to see if stone spontaneously passed. In the morning of December 30 emergency room physician came over to [facility] and found the patient to still have symptoms of obstructive uropathy. He was transferred to [facility] for urology evaluation and intervention. I did not see him during his time on [facility] floor. - Time Spent with Patient Total time spent providing and/or coordinating discharge services: - Discharge Medications Home Medications: Ondansetron ODT [Zofran ODT] 8 mg SL Q12HR #10 tab.rapdis 12/28/17 [Rx] OxyCODONE/APAP 5/325 [Percocet 5/325 MG] 1 each PO Q6HR PRN 5 Days #20 tablet [Rx] Allergies/Adverse Reactions: 3 Allergy/AdvReac Type Severity Reaction Status Date / Time tamsulosin [From Flomax] AdvReac See Verified 12/29/17 21:36 Comments Date of admission: 12/29/17 22:47 Primary care physician: PCP NONE - Constitutional Vitals: Temp Pulse Resp BP Pulse Ox 98.0 F 62 18 103/67 98 12/30/17 07:10 12/30/17 07:10 12/30/17 07:10 12/30/17 07:10 12/30/17 07:10 - Patient Status Disposition: Transfer Other Condition: Fair - Discharge Instructions Follow Up With: NONE,PCP [Primary Care Provider] - 1 week
== END 2017-12-30 08:16 | disposition short-term general hospital (02) ==
LOC: INPPIK 21:35 → EMEROOPIK 21:35 → INPPIK 23:30
PROVIDERS: ADMIT Internal Medicine; ATTEND Internal Medicine

== ENCOUNTER 2018-06-27 12:35 | Observation (INO) ==
--- NOTE | 2018-06-27 13:01 | Emergency Department Note ---
Disposition Clinical Impression: Acute kidney injury, Polycythemia Abdominal pain Qualifiers: Abdominal location: generalized Qualified Code(s): R10.84 - Generalized abdominal pain Cyclic vomiting syndrome Qualifiers: Vomiting Intractability: intractable Nausea presence: with nausea Qualified Code(s): G43.A1 - Cyclical vomiting, intractable Disposition: Admitted As Inpatient Condition: Fair Referrals: NONE,PCP [Primary Care Provider] - Forms: ED Satisfaction Letter Time of Disposition: 14:50 Nausea/Vomiting/Diarrhea HPI - General Chief complaint: ED Nausea/Vomiting/Diarrhea Stated complaint: N/V/D Time Seen by Provider: 06/27/18 12:58 Source: patient Mode of arrival: private vehicle Limitations: no limitations Nursing Notes Reviewed: Yes Vital Signs Reviewed: Yes - History of Present Illness HPI Narrative: Patient relates he has had persistent nausea and vomiting for about 3 days. He states he has only had slight diarrhea. With this he has had mid abdominal pain which radiates to his back which is described as cramping. He states he is now to where he is having some extremity cramping including his arms and legs. He has had this multiple times over the last 9 years and he states that his been diagnosed as gastroparesis, hiatal hernia or cyclical vomiting syndrome. He denies any associated fevers, chills, chest pain or shortness of breath. He denies cough. Denies any ill exposures, change of medications, recent antibiotics, travel or food borne illness concerns. He states this is the "same as ever" and that he usually gets IV fluids, pain medicine and antibiotics for couple days. He states he has had acute kidney injury from this in the past. Pt Subjective Complaint: nausea, vomiting, diarrhea, abdominal pain Onset (ago): day(s) (3) Description of emesis: watery Description of Diarrhea: water Associated Abdominal Pain: Yes If pain, Location of pain: diffuse Radiation: other (Mid back) Severity: moderate Quality: cramping Consistency: intermittent, Worsening Improves with: nothing Worsens with: eating, vomiting Context: other (History of recurrent similar symptoms for 9 years) Associated symptoms: Reports: myalgias, diaphoresis, loss of appetite, malaise, nausea/vomiting, weakness. Denies: chest pain, cough, fever/chills, headaches, rash, dysuria, shortness of breath, syncope - Related Data Previous Rx's Medication Instructions Recorded Calcium Carbonate [Tums] 1,000 mg PO Q4HR PRN tab.chew 12/31/17 Allergies Allergy/AdvReac Type Severity Reaction Status Date / Time tamsulosin [From Flomax] AdvReac See Verified 06/27/18 12:36 Comments All systems ED: reviewed and negative except as stated. Past Medical History - Past Medical History Attestation: Yes The following information was validated with the patient. Source: patient, old records reviewed, nursing notes reviewed Medical history: Reports: kidney stones, other (Gastroparesis, cyclical vomiting syndrome, hiatal hernia) Surgical history: Reports: other (Kidney stone extraction) Psychiatric history: Reports: no psych history - Social History Smoking Status: Current every day smoker Smokeless Tobacco Status: No Alcohol use: Reports: none Drug use: Reports: marijuana Physical Exam - General Limitations: no limitations General appearance: alert, in no apparent distress - Head Head exam: atraumatic, normocephalic, normal inspection - Eye Eye exam: Present: normal appearance, PERRL, EOMI. Absent: scleral icterus, conjunctival injection - ENT ENT exam: normal exam, normal oropharynx, mucous membranes moist - Neck Neck exam: Present: normal inspection, full ROM, trachea midline - Chest Chest inspection: Present: normal inspection, symmetric chest wall rise - Respiratory Respiratory exam: Present: normal lung sounds bilaterally. Absent: respiratory distress, wheezes, prolonged expiratory phase - Cardiovascular Cardiovascular exam: Present: regular rate, normal rhythm, normal heart sounds. Absent: tachycardia - Abdominal Exam Abdominal exam: Present: soft, tenderness, normal bowel sounds. Absent: distention, guarding, rebound, rigidity, Newton's sign, tenderness at McBurney' s Point, pulsatile mass Abdominal tenderness: Present: epigastrium (And mid abdomen), mild - Extremities Exam Extremities exam: Present: normal inspection, full ROM, normal capillary refill. Absent: tenderness, pedal edema - Expanded Lower Extremity Exam Neurovascular/Tendon exam: Present: normal capillary refill. Absent: motor deficit, sensory deficit, tendon deficit Gait: not tested/not observed - Back Exam Back exam: Present: normal inspection, full ROM. Absent: tenderness, CVA tenderness (R), CVA tenderness (L) - Neurological Exam Neurological exam: Present: alert, oriented X3 - Psychiatric Psychiatric exam: Present: normal affect, normal mood - Skin Skin exam: Present: warm, dry, intact, normal color. Absent: diaphoresis, pallor Course Course Narrative: Patient demonstrates significant volume depletion with hemoconcentration and acute renal insufficiency. I believe he will benefit from continuation of aggressive IV hydration. This is discussed with Dr. Nunez was given verbal orders for his observation. Vital Signs Temperature 98.5 F 06/27/18 12:37 Pulse Rate 94 06/27/18 12:37 Respiratory Rate 18 06/27/18 12:37 Blood Pressure 138/96 06/27/18 12:37 O2 Sat by Pulse Oximetry 97 06/27/18 12:37 Temperature 98.5 F 06/27/18 12:37 Pulse Rate 64 06/27/18 14:29 Respiratory Rate 18 06/27/18 14:29 Blood Pressure 134/88 06/27/18 14:29 O2 Sat by Pulse Oximetry 98 06/27/18 14:29 Oxygen Delivery Oxygen Delivery Room Air Nausea/Vomiting/Diarrhea - Differential Diagnosis Likely: food poisoning, gastroenteritis, dehydration - Lab Data Lab results reviewed: Yes I reviewed the patient's lab results. Result diagrams: 06/27/18 13:15 06/27/18 13:15 Lab Results 06/27/18 06/27/18 06/27/18 Range/Units 13:12 13:15 13:15 WBC 19.8 H (4.3-11.1) K/mcL RBC 6.84 H (4.19-5.50) M/mcL Hgb 19.1 H (12.9-16.9) g/dL Hct 56.8 H (37.5-50.1) % MCV 83.0 (83.0-100.0) fL MCH 27.9 L (28.0-33.3) pg MCHC 33.6 (31.6-35.5) g/dL RDW 13.3 (11.5-14.5) % Plt Count 383 (140-400) K/mcL MPV 10.7 (9.4-12.4) fL Immature Gran % 0.6 (0-4) % Seg Neutrophils % 86.9 % Lymphocytes % 7.7 % Monocytes % 4.3 % Eosinophils % 0.0 % Basophils % 0.5 % Neutrophils # 17.2 H (1.6-8.9) K/mcL Lymphocytes # 1.5 (0.6-4.6) K/mcL Monocytes # 0.9 (0.0-1.3) K/mcL Eosinophils # 0.0 (0.0-0.6) K/mcL Basophils # 0.1 (0.0-0.2) K/mcL Sodium 145 (136-145) mEq/L Potassium 4.0 (3.5-5.1) mEq/L Chloride 104 (98-107) mEq/L Carbon Dioxide 23 (23-29) mEq/L BUN 25 H (6-20) mg/dL Creatinine 2.04 H (0.70-1.30) mg/dL Est GFR ( Amer) 45 L (> 60) Est GFR (Non-Af Amer) 37 L (> 60) BUN/Creatinine Ratio 12 (6-26) Glucose 207 H (70-105) mg/dL Calculated Osmolality 310 H (280-300) Calcium 12.0 H (8.6-10.3) mg/dL Total Bilirubin 0.8 (0.3-1.0) mg/dL AST 14 (13-39) Units/L ALT 16 (7-52) Units/L Alkaline Phosphatase 93 (34-104) Units/L Serum Total Protein 9.2 H (6.4-8.9) g/dL Albumin 5.4 (3.5-5.7) g/dL Globulin 3.8 H (2.4-3.5) g/dL Albumin/Globulin Ratio 1.4 (1.1-2.2) Lipase 62 (11-82) Units/L Urine Color Jo A (Yellow) Urine Clarity Clear (Clear) Urine pH 5.0 (5.0-8.0) pH Units Ur Specific [place] >= 1.030 H (1.010-1.025) Urine Protein >=300 H (Neg-Trace) mg/dL Urine Glucose (UA) Normal (Normal) mg/dL Urine Ketones 15 H (Negative) mg/dL Urine Blood Large H (Negative) Urine Nitrite Negative (Negative) Urine Bilirubin Large H (Negative) Urine Urobilinogen Normal (Normal) mg/dL Ur Leukocyte Esterase Trace H (Negative) Urine Microscopic RBC TNTC H (0-3) per hpf Urine Microscopic WBC 5-15 H (0-3) per hpf Ur Squamous Epith Cells Few (None-Few) per lpf Amorphous Sediment Moderate H (Few) Urine Bacteria Many H (None-Few) per hpf Hyaline Casts Many H (None-Few) per lpf Urine Mucus Many H (Few) Ur Culture Indicated? YES A (NO) - Radiology Data Radiology results reviewed: Yes I reviewed the patient's radiology results. Impressions Abdomen/Pelvis CT 06/27/18 13:48 IMPRESSION: Nonobstructing renal stones. Diffuse mild wall thickening involving the rectum. Findings may be related to infectious or inflammatory proctitis. Neoplasm is also a consideration. Consider further evaluation with direct visualization. D/ / Rachna Acevedo MD / Rachna Acevedo MD Interpreting Provider: Rachna Acevedo MD
[2018-06-27] MEDS ORDERED: 0.9 % Sodium Chloride 1,000 ML IVC ONE (13:09)
[2018-06-27] MEDS ORDERED: Ondansetron 4 MG/2 ML VIAL IVP ONE (13:09)
[2018-06-27 13:18] LABS: Bilirubin,Urine Large (Negative); Blood,Urine Large (Negative); Clarity,Urine Clear (Clear); Color,Urine Amber (Yellow); Glucose,Urine (UA) Normal (Normal); Ketones,Urine 15 mg/dL (Negative); Leukocyte Esterase,Urine Trace (Negative); Nitrite,Urine Negative (Negative); Protein,Urine >=300 mg/dL (Neg-Trace); Specific Gravity,Urine >= 1.030 (1.010-1.025); Urobilinogen,Urine Normal (Normal)
[2018-06-27 13:26] LABS: Basophils # 0.1 K/mcL (0.0-0.2); Basophils % 0.5 %; Hemoglobin 19.1 g/dL (12.9-16.9); Immature Granulocytes % 0.6 % (0-4); Lymphocytes # 1.5 K/mcL (0.6-4.6); Lymphocytes % 7.7 %; Mean Corpuscular HGB Conc 33.6 g/dL (31.6-35.5); Mean Corpuscular Hemoglobin 27.9 pg (28.0-33.3); Mean Platelet Volume 10.7 fL (9.4-12.4); Monocytes # 0.9 K/mcL (0.0-1.3); Monocytes % 4.3 %; Neutrophils # 17.2 K/mcL (1.6-8.9); Platelet Count 383 K/mcL (140-400); Red Blood Count 6.84 M/mcL (4.19-5.50); Red Cell Distribution Width 13.3 % (11.5-14.5); Segmented Neutrophils % 86.9 %
[2018-06-27 13:27] LABS: RBC,Urine TNTC per hpf (0-3)
[2018-06-27 13:28] LABS: Amorphous Sediment,Urine Moderate (Few); Bacteria,Urine Many per hpf (None-Few); Hyaline Casts,Urine Many per lpf (None-Few); Mucus,Urine Many (Few); Squamous Epithelial Cell,Urine Few per lpf (None-Few)
[2018-06-27 13:29] LABS: Hematocrit 56.8 % (37.5-50.1)
[2018-06-27] MEDS ORDERED: GI Cocktail 40 ML EACH PO ONE ×2 (13:36→18:43)
[2018-06-27 13:42] LABS: Albumin 5.4 g/dL (3.5-5.7); Albumin/Globulin Ratio 1.4 (1.1-2.2); Bilirubin,Total 0.8 mg/dL (0.3-1.0); Globulin 3.8 g/dL (2.4-3.5); Total Protein 9.2 g/dL (6.4-8.9)
[2018-06-27] MEDS ORDERED: Haloperidol Lactate 5 MG/ML VIAL IVP ONE (13:48)
[2018-06-27] MEDS ORDERED: cefTRIAXone 2,000 MG in 0.9 % Sodium Chloride Mini Bag 100 ML IVPB ONE (13:49)
[2018-06-27] MEDS ORDERED: 0.9 % Sodium Chloride 1,000 ML IVC SCH (15:15)
[2018-06-27] MEDS ORDERED: 0.9 % Sodium Chloride 1,000 ML ONE (15:16)
[2018-06-27] MEDS ORDERED: Naloxone 0.4 MG/ML INJ IVP PRN (16:32)
[2018-06-27] MEDS ORDERED: Ondansetron 4 MG/2 ML VIAL IVP PRN (16:32)
[2018-06-27] MEDS: 0.9 % Sodium Chloride 1,000 ML IVC SCH (17:38)
--- NOTE | 2018-06-27 18:29 | Internal Med History&Physical ---
Date of Encounter: 06/27/18 Time of Encounter: 18:00 Assessment and Plan (1) Intractable vomiting with nausea Current visit: No Status: Acute Etiology uncertain. He will be given IV fluids and ordered prn anti-emetics. Qualifiers: Vomiting type: cyclical vomiting Qualified Code(s): G43.A1 - Cyclical vomiting, intractable (2) Hypercalcemia Current visit: No Status: Acute Continue IV fluids. Will check PTH and vitamin D levels. (3) Leucocytosis Current visit: No Status: Acute Possibly secondary to gastroenteritis. Recheck labs in a.m. Qualifiers: Leukocytosis type: unspecified Qualified Code(s): D72.829 - Elevated white blood cell count, unspecified (4) Acute renal failure Current visit: No Status: Acute Continue IV fluids. Recheck labs in a.m. Qualifiers: Acute renal failure type: unspecified Qualified Code(s): N17.9 - Acute kidney failure, unspecified Internal Medicine - H&P: HPI Chief complaint: Vomiting Admitted From: Emergency Dept Plans for Post Hospital Care: Home History of present illness: Mr. Kwan is a 33 year old male who came to emergency room stating he had onset of abdominal discomfort and vomiting June 24. He reports he has vomited "100s of times" since onset. He denies hematemesis. He states he had minimal diarrhea. When symptoms did not improve he decided to come to emergency room for evaluation. He was found to have leukocytosis with left shift, acute renal insufficiency, and hematuria. He was admitted to [facility] floor for ongoing care needs. He reports onset of GI problems approximately 2007 and was diagnosed with cyclical vomiting approximate 2010 while living in [place]. He states he vomits almost daily. He has had several occasions when vomiting is more severe and requires hospitalization for 2-3 days with IV fluids and analgesics. He reports having 2 EGDs and 2 colonoscopies in the past along with numerous abdominal CT scans. He was evaluated at [facility] approximate 2012 but was dissatisfied with physician and did not return after the third visit. He has not seen other [place] gastroenterologists. He had several colon polyps removed during his last colonoscopy 2012. He has not had a follow-up colonoscopy as was recommended to be done after 3 years. He has a diagnosis of GERD. He was also diagnosed with gastroparesis by nuclear medicine gastric emptying study but did not tolerate side effects of Reglan. He denies other disorders of his liver gallbladder or exocrine pancreas. Past Med Surg Social Fam HX - Past Medical History Medical history: kidney stones, other Additional medical history: GASTRIC PYRESIS. HIATIAL HERNIA Psychiatric history: no psych history - Past Surgical History Surgical History: other Additional surgical history: LITHROTRIPSY. HAD KIDNEY STONES REMOVED - Social History Smoking Status: Current every day smoker Packs per day: 1 Smokeless Tobacco Status: No Alcohol use: none Drug use: marijuana - Family History Grandmother Living Status: Hx Family Cancer: Yes Internal Medicine - H&P: Meds Calcium Carbonate [Tums] 1,000 mg PO Q4HR PRN tab.chew 12/31/17 [Rx] 3 Allergy/AdvReac Type Severity Reaction Status Date / Time tamsulosin [From Flomax] AdvReac See Verified 06/27/18 12:36 Comments All Systems PM: A 10-system review of systems was performed and is negative for pertinent findings except as documented above in the HPI. Review of systems: Review of systems from his March [address] [facility] hospitalization were reviewed and revised as below. General: His weight has decreased from 114.235 kg on 03/28/2017 to 104.326 kg at present time. Cardiovascular: He denies NH hypertension heart failure angina DVT or pulmonary embolus Respiratory: He is smoked since age 14 a total of 15 years up to one pack per day. He denies chronic lung disease and does not wear home oxygen GI: As per history of present illness : He has had multiple kidney stones in the past and has had lithotripsy. He has had numerous episodes of acute renal failure requiring IV fluids for rehydration. He was told at one time he had prostatitis. He did not see a urologist as recommended when discharged December 2016. Neurologic: He denies large distribution strokes or seizures. Endocrine: He denies diabetes thyroid disease or hyperlipidemia. He has been diagnosed with hypercalcemia in the past but PTH level was normal April 2015 Hematology/oncology: He denies blood disorders cancers or anemia Psychiatric: Denies anxiety depression or other mental health issues [place] skeletal: He denies arthritis gout or other bone joint or muscle disorders. - Constitutional Vitals: Temp Pulse Resp BP Pulse Ox 98.5 F 63 18 141/78 94 06/27/18 12:37 06/27/18 15:32 06/27/18 15:32 06/27/18 15:32 06/27/18 15:32 Exam: Gen.: He is a well-developed well-nourished male resting comfortably in bed who appears in mild discomfort at present time HEENT: Head is atraumatic and normocephalic. Eyes: EOMI. There is no scleral icterus. Mouth: Mucosa is moist. Neck: Supple and nontender. There is no thyromegaly or adenopathy noted. Heart: Regular without murmurs gallops or ectopics Lungs: No wheezes or crackles are heard. Abdomen: Bowel sounds are diminished. There is mild tenderness to palpation. No masses or guarding are noted. Extremities: There is no cyanosis edema or clubbing noted. Dorsalis pedis and posttibial pulses are 2 over 2 bilaterally. Neurologic: Mental status: He is talkative and a good historian. Cranial nerves : Smile is symmetric. Forehead wrinkles bilaterally. Tongue protrudes midline. EOMI. Motor: There is no pronator drift. Cerebellar: Finger to nose is intact bilaterally. Skin: Warm and dry Internal Med - H&P Results - Labs CBC & Chem 7: 06/27/18 13:15 06/27/18 13:15
[2018-06-27] MEDS ORDERED: *HR* LORazepam 2 MG/ML VIAL IVP ONE (18:40)
[2018-06-27] MEDS ORDERED: *HR* Promethazine 25 MG/ML VIAL IVP PRN (18:55)
[2018-06-28] MEDS: *HR* LORazepam 2 MG/ML VIAL IVP PRN ×6 (02:16→23:56)
[2018-06-28] MEDS: 0.9 % Sodium Chloride 1,000 ML IVC SCH ×5 (02:20→21:44)
[2018-06-28 06:34] LABS: Basophils # 0.1 K/mcL (0.0-0.2); Basophils % 0.5 %; Eosinophils % 0.1 %; Hematocrit 49.6 % (37.5-50.1); Hemoglobin 15.3 g/dL (12.9-16.9); Immature Granulocytes % 0.4 % (0-4); Lymphocytes # 2.3 K/mcL (0.6-4.6); Mean Corpuscular HGB Conc 30.8 g/dL (31.6-35.5); Mean Corpuscular Hemoglobin 28.3 pg (28.0-33.3); Mean Corpuscular Volume 91.7 fL (83.0-100.0); Mean Platelet Volume 11.4 fL (9.4-12.4); Monocytes # 2.2 K/mcL (0.0-1.3); Monocytes % 12.3 %; Platelet Count 226 K/mcL (140-400); Red Blood Count 5.41 M/mcL (4.19-5.50); Red Cell Distribution Width 13.2 % (11.5-14.5); Segmented Neutrophils % 73.7 %
[2018-06-28 06:57] LABS: Alanine Aminotransferase 11 Units/L (7-52); Albumin/Globulin Ratio 1.6 (1.1-2.2); Alkaline Phosphatase 63 Units/L (34-104); Aspartate Amino Transferase 11 Units/L (13-39); BUN/Creatinine Ratio 20 (6-26); Bilirubin,Total 0.6 mg/dL (0.3-1.0); Blood Urea Nitrogen 23 mg/dL (6-20); Calcium 9.3 mg/dL (8.6-10.3); Carbon Dioxide 28 mEq/L (23-29); Chloride 110 mEq/L (98-107); Globulin 2.5 g/dL (2.4-3.5); Glucose 113 mg/dL (70-105); Osmolality,Calculated 306 (280-300); Phosphorous 3.3 mg/dL (2.7-4.5); Sodium 146 mEq/L (136-145); Total Protein 6.5 g/dL (6.4-8.9); eGFR For Non-African Americans > 60 (> 60)
[2018-06-28 07:35] LABS: Thyroid Stimulating Hormone 0.306 mcIU/mL (0.340-5.600)
[2018-06-28] MEDS: Ondansetron 4 MG/2 ML VIAL IVP PRN (12:41)
--- NOTE | 2018-06-28 15:27 | Internal Med Progress Note ---
Date of Encounter: 06/28/18 Time of Encounter: 15:15 - Assessment and plan (1) Intractable vomiting with nausea Current Visit: No Status: Acute Assessment and plan: June 28. Improved. Continue present regimen and increase Ativan. Will advance diet. Anticipate discharge home tomorrow. Qualifiers: Vomiting type: cyclical vomiting Qualified Code(s): G43.A1 - Cyclical vomiting, intractable (2) Hypercalcemia Current Visit: No Status: Acute Assessment and plan: June 28. Resolved. Calcium level 9.3 today. PTH normal at 15.0. (3) Leucocytosis Current Visit: No Status: Acute Assessment and plan: July 28. Improved with WBC 17.7 and resolution of left shift. Continue present management. Qualifiers: Leukocytosis type: unspecified Qualified Code(s): D72.829 - Elevated white blood cell count, unspecified (4) Acute renal failure Current Visit: No Status: Acute Assessment and plan: June 28. Improved with BUN and creatinine 23 and 1.1 for now with estimated GFR greater than 60. Recheck labs in a.m. Qualifiers: Acute renal failure type: unspecified Qualified Code(s): N17.9 - Acute kidney failure, unspecified - Subjective Interval history: June 28. He has no new complaints and feels better. He states the present dose of Ativan is helping but not resolving his abdominal discomfort. He reports his last episode of vomiting was approximately 6 hours ago. - Constitutional Vitals: Temp Pulse Resp BP Pulse Ox 98.3 F 69 18 136/83 98 06/28/18 14:44 06/28/18 14:44 06/28/18 14:44 06/28/18 14:44 06/28/18 14:44 Exam: He is resting comfortably in bed and appears in minimal distress. His affect is overall cheerful. I reviewed his medications and lab results. Internal Medicine: Result - Labs CBC & Chem 7: 06/28/18 06:25 06/28/18 06:25 Labs: Short CBC 06/28/18 Range/Units 06:25 WBC 17.7 H (4.3-11.1) K/mcL Hgb 15.3 D (12.9-16.9) g/dL Hct 49.6 (37.5-50.1) % Plt Count 226 (140-400) K/mcL Neutrophils # 13.0 H (1.6-8.9) K/mcL BMP 06/28/18 06:25 Sodium 146 H Potassium 4.0 Chloride 110 H Carbon Dioxide 28 BUN 23 H Creatinine 1.14 Glucose 113 H Calcium 9.3 Liver Function 06/28/18 Range/Units 06:25 Total Bilirubin 0.6 (0.3-1.0) mg/dL AST 11 L (13-39) Units/L ALT 11 (7-52) Units/L Alkaline Phosphatase 63 (34-104) Units/L Albumin 4.0 (3.5-5.7) g/dL Consult Discharge Plan - Plan Referrals: NONE,PCP [Primary Care Provider] - 1 week
[2018-06-29] MEDS: 0.9 % Sodium Chloride 1,000 ML IVC SCH ×2 (02:55→08:26)
[2018-06-29] MEDS: Ondansetron 4 MG/2 ML VIAL IVP PRN (02:56)
[2018-06-29] MEDS: *HR* LORazepam 2 MG/ML VIAL IVP PRN ×2 (04:12→08:27)
[2018-06-29 06:36] LABS: Basophils # 0.1 K/mcL (0.0-0.2); Basophils % 0.7 %; Eosinophils # 0.1 K/mcL (0.0-0.6); Eosinophils % 0.3 %; Hemoglobin 14.2 g/dL (12.9-16.9); Immature Granulocytes % 0.3 % (0-4); Lymphocytes # 2.5 K/mcL (0.6-4.6); Lymphocytes % 16.4 %; Mean Corpuscular HGB Conc 32.3 g/dL (31.6-35.5); Mean Corpuscular Hemoglobin 28.8 pg (28.0-33.3); Mean Corpuscular Volume 89.2 fL (83.0-100.0); Mean Platelet Volume 11.8 fL (9.4-12.4); Monocytes # 1.3 K/mcL (0.0-1.3); Monocytes % 8.8 %; Platelet Count 215 K/mcL (140-400); Red Blood Count 4.93 M/mcL (4.19-5.50); Red Cell Distribution Width 12.8 % (11.5-14.5); Segmented Neutrophils % 73.5 %
[2018-06-29 06:51] LABS: Neutrophils # 11.2 K/mcL (1.6-8.9)
[2018-06-29 07:05] LABS: BUN/Creatinine Ratio 14 (6-26); Blood Urea Nitrogen 12 mg/dL (6-20); Calcium 9.1 mg/dL (8.6-10.3); Carbon Dioxide 27 mEq/L (23-29); Chloride 108 mEq/L (98-107); Glucose 101 mg/dL (70-105); Osmolality,Calculated 294 (280-300); Potassium 3.7 mEq/L (3.5-5.1); Sodium 142 mEq/L (136-145); eGFR For Non-African Americans > 60 (> 60)
[2018-06-29 08:46] VITALS: BP 135/77
--- NOTE | 2018-06-29 09:17 | Discharge Summary ---
Orders not resulted at time of discharge: Pending orders 06/27/18 18:46 Urine tox screen [Drug Screen, Urine] [[facility]] Routine 06/28/18 06:25 Vitamin D 1,25 Dihydroxy AM 0400 Date of Encounter: 06/29/18 Time of Encounter: 09:05 - Discharge Diagnosis (1) Intractable vomiting with nausea Priority: Primary Status: Acute Qualifiers: Vomiting type: cyclical vomiting Qualified Code(s): G43.A1 - Cyclical vomiting, intractable (2) Hypercalcemia Priority: Secondary Status: Resolved (3) Leucocytosis Priority: Secondary Status: Acute Qualifiers: Leukocytosis type: unspecified Qualified Code(s): D72.829 - Elevated white blood cell count, unspecified (4) Acute renal failure Priority: Secondary Status: Resolved Qualifiers: Acute renal failure type: unspecified Qualified Code(s): N17.9 - Acute kidney failure, unspecified Hospital course: Mr. Kwan is a 33 year old male who came to emergency room stating he had onset of abdominal discomfort and vomiting June 24. He reports he has vomited "100s of times" since onset. He denies hematemesis. He states he had minimal diarrhea. When symptoms did not improve he decided to come to emergency room for evaluation. He was found to have leukocytosis with left shift, acute renal insufficiency, and hematuria. He was admitted to [facility] for ongoing care needs. Initial orders were written by the emergency room physician. I saw him on June 27 performed the history and physical. He was given IV fluids. Antiemetics were given as needed. Vomiting significantly decreased during hospital stay. WBC improved to 15.2 with resolution of left shift by day of discharge. BUN and creatinine normalized to 12 and 0.4 respectively. He had adequate intake of food and fluids by day of discharge. Additional lab work showed PTH 15.0, TSH 0.306, and 25-OH vitamin D 32. Calcium normalized to 9.1 by day of discharge. When I saw him on June 29 he was stable for discharge home. I encouraged him to follow with a PCP within the next week. PCP can refer him to a [facility] environmental compliance [facility] for further evaluation. - Time Spent with Patient Total time spent providing and/or coordinating discharge services: - Discharge Medications Home Medications: Calcium Carbonate [Tums] 1,000 mg PO Q4HR PRN tab.chew 12/31/17 [Rx] Allergies/Adverse Reactions: 3 Allergy/AdvReac Type Severity Reaction Status Date / Time tamsulosin [From Flomax] AdvReac See Verified 06/27/18 12:36 Comments Date of admission: 06/27/18 15:14 Primary care physician: PCP NONE - Constitutional Vitals: Temp Pulse Resp BP Pulse Ox 97.9 F 65 16 135/77 97 06/29/18 07:15 06/29/18 07:15 06/29/18 07:15 06/29/18 07:15 06/29/18 07:15 - Patient Status Disposition: Home, Self-Care Condition: Fair - Discharge Instructions Follow Up With: NONE,PCP [Primary Care Provider] - 1 week - Diet and Activity Activity: resume usual activities as tolerated Diet: advance to your usual diet
== END 2018-06-29 10:25 | disposition home or self-care (01) ==
LOC: INPPIK 12:35 → EMEROOPIK 12:35 → INPPIK 16:11
PROVIDERS: ADMIT Internal Medicine; ATTEND Internal Medicine